=== PATIENT | male | born 1965 | race Caucasian/White ===

== ENCOUNTER 2017-03-26 17:41 | Emergency (ER) | payer MEDICAID, OTHER ==
[2017-03-26] MEDS: GLUCAGON 1 MG INJ IM ×2 (19:59→22:16)
== END 2017-03-26 22:40 | disposition home or self-care (01) ==
LOC: FTE 17:41
DX: T18.108A Unspecified foreign body in esophagus causing other injury, initial encounter (principal); X58.XXXA Exposure to other specified factors, initial encounter; Y92.9 Unspecified place or not applicable
CPT/HCPCS: 96372; 99284-25